=== PATIENT | female | born 1995 | race Caucasian/White ===

== ENCOUNTER 2016-05-06 15:07 | Emergency (ER) | payer OTHER ==
--- NOTE | 2016-05-06 15:24 | ER Document Report ---
ED Medical Screen (RME) - General Stated Complaint: DIFFICULTY BREATHING Notes: patient is a 20 year old female who is 32 weeks . c/o difficulty breathing and palpitations. denies chest pain, SOB,cough, fever, diarrhea, intermittently tachycardic to 120's for less then 30 seconds while talking I have greeted and performed a rapid initial assessment of this patient. A comprehensive ED assessment and evaluation of the patient, analysis of test results and completion of the medical decision making process will be conducted by additional ED providers. TRAVEL OUTSIDE OF THE [place] IN LAST 30 DAYS: No - Related Data Allergies/Adverse Reactions: No Known Allergies Allergy (Unverified 12/19/15 19:22) Past Medical History - Immunizations Hx Diphtheria, Pertussis, Tetanus Vaccination: Yes
--- NOTE | 2016-05-06 17:56 | ER Document Report ---
ED General - General Chief Complaint: Breathing Difficulty Stated Complaint: DIFFICULTY BREATHING Mode of Arrival: Ambulatory Information source: Patient Notes: Patient is a 20-year-old female who presents who is 32 weeks with a two -month history of intermittent heart palpitations, difficulty breathing and associated hot flashes. She describes no specific pattern to these episodes but states they are starting to happen more often. She saw her FITNESS FLOOR ATTENDANT 2 days ago who at that time did not feel these were related to the . She also endorses nosebleeds that have been occurring intermittently over the past 3 months. She states at one point she had a daily nosebleed for 2 weeks but it had seemed to be better until today. She did notice during her episode this morning her nose was also bleeding. She denies any headaches, dizziness, changes in vision, chest pain, nausea, vomiting or fevers/chills. She endorses adequate movement, no loss of fluid, no vaginal bleeding or vaginal discharge. She does have a history of anxiety but denies feeling anxious at this time. TRAVEL OUTSIDE OF THE [place] IN LAST 30 DAYS: No - Related Data Allergies/Adverse Reactions: No Known Allergies Allergy (Verified 05/06/16 15:21) Past Medical History - Social History Smoking Status: Never Smoker Chew tobacco use (# tins/day): No Frequency of alcohol use: None Drug Abuse: None Family History: Reviewed & Not Pertinent Patient has suicidal ideation: No Patient has homicidal ideation: No Renal/ Medical History: Denies: Hx Peritoneal Dialysis Surgical Hx: Negative - Immunizations Hx Diphtheria, Pertussis, Tetanus Vaccination: Yes Review of Systems - Review of Systems Constitutional: See HPI EENT: No symptoms reported Cardiovascular: See HPI Respiratory: No symptoms reported Gastrointestinal: No symptoms reported Genitourinary: No symptoms reported Female Genitourinary: No symptoms reported Musculoskeletal: No symptoms reported Skin: No symptoms reported Hematologic/Lymphatic: No symptoms reported Neurological/Psychological: No symptoms reported Physical Exam - Vital signs Vitals: Temp Pulse Resp BP Pulse Ox 97.8 F 86 20 113/77 96 05/06/16 15:21 05/06/16 15:21 05/06/16 15:21 05/06/16 15:21 05/06/16 15:21 - Notes Notes: PHYSICAL EXAM: CONSTITUTIONAL: Alert and oriented, well-appearing and in no acute distress. HENT: Normocephalic, atraumatic. Moist mucous membranes. EYES: Pupils equal round and reactive to light, EOM intact. Sclera anicteric, conjunctiva are normal. No entrapment. NECK: supple without lymphadenopathy. ROM intact. HEART: Regular rate and rhythm without murmurs. LUNGS: CTAB and equal. No wheezes, rales or rhonchi. GI: Gravid abdomen. Normactive bowel sounds. Nontender, non-distended. No organomegaly. no CVAT. BACK: nontender, no paraspinous spasm, 5+/5 strengths, DTRs 2+, SLR -. EXTREMITIES: Normal range of motion, no pitting edema. No cyanosis. Cap Refill < 3 seconds. NEURO: Cranial nerves grossly intact. Normal sensory/motor exams. PSYCH: Normal mood, normal affect. SKIN: Warm and dry. Normal turgor. No rashes or lesions noted. Course - Re-evaluation Re-evalutation: 05/06/16 17:55 I have consulted with the supervisory physician per [facility] guidelines. Patient seen and examined. Ordered lab work, urinalysis and EKG. During exam, heart rate noted to be 93. 05/06/16 20:50 Reviewed lab work - CBC unremarkable, chem panel unremarkable. Urinalysis with leuk est, 4 WBC. D-dimer within normal limits. Patient remained asymptomatic while in ED. Discussed management and plan with supervisory physician who is in agreement. Discharged home in stable condition, follow-up with OBGYN. Given script for abx for UTI. - Vital Signs Vital signs: Temp Pulse Resp BP Pulse Ox 97.8 F 86 20 113/77 96 05/06/16 15:21 05/06/16 15:21 05/06/16 15:21 05/06/16 15:21 05/06/16 15:21 - Laboratory Result Diagrams: 05/06/16 18:00 05/06/16 18:00 Laboratory results interpreted by me: 05/06/16 05/06/16 05/06/16 18:00 18:00 18:00 Hct 34.8 L Plt Count 101 L Sodium 134.9 L BUN 6 L Ur Leukocyte Esterase MODERATE H Discharge - Discharge Clinical Impression: UTI (urinary tract infection) Qualifiers: Urinary tract infection type: acute cystitis Hematuria presence: without hematuria Qualified Code(s): N30.00 - Acute cystitis without hematuria Condition: Stable Disposition: HOME, SELF-CARE Additional Instructions: URINARY TRACT INFECTION: Your evaluation indicates that you have a urinary tract infection. This is due to germs growing in the bladder. This is a common problem. This infection usually responds quickly to antibiotics. Your antibiotic should be taken exactly as prescribed. Drink plenty of fluids -- three to four quarts a day. Occasionally, a bladder anesthetic will be prescribed to help stop the feeling of urgency until the antibiotic has a chance to clear the infection. This may cause your urine to be dark orange. Certain urine infections require a culture. If the doctor obtained a culture, the results will be back in two days. You should call to see if a change in treatment is needed. A repeat urinalysis after you finish treatment is often recommended. The physician will let you know if further testing is required. Call the doctor if you develop fever, chills, flank pain, inability to urinate, or blood in the urine. ANTIBIOTIC THERAPY: You have been given an antibiotic prescription. It's important that you take all the medication, unless instructed otherwise by your physician. Failure to complete the entire course can result in relapse of your condition. Common side effects of antibiotics include nausea, intestinal cramping, or diarrhea. Women may develop vaginal yeast infections, and babies can get yeast (thrush) in the mouth following the use of antibiotics. Contact your physician if you develop significant side effects from this medication. Allergy to this antibiotic can result in hives, wheezing, faintness, or itching. If symptoms of allergy occur, stop the medication and call the doctor. NITROFURANTOIN (MACRODANTIN, MACROBID): You have received a prescription for nitrofurantoin (Macrodantin). This antibiotic is used for urinary tract infections. Women who are or nursing should notify the physician before taking this medicine. If you have ever had a problem caused by this medication in the past, be sure the physician is aware of it. Common side effects of this medicine include nausea, vomiting, or decreased appetite. Notify your physician if these side effects become severe. Immediately stop this medicine and call the physician if you develop cough , shortness of breath, chest pain, weakness, jaundice (yellow color of the skin and whites of the eyes), or a skin rash. FOLLOW-UP CARE: If you have been referred to a physician for follow-up care, call the physician s office for an appointment as you were instructed or within the next two days. If you experience worsening or a significant change in your symptoms, notify the physician immediately or return to the Emergency Department at any time for re-evaluation. Prescriptions: Nitrofurantoin/Nitrofuran Mac [Macrobid 100 mg Capsule] 1 tab PO BID #20 capsule
[2016-05-06 18:23] LABS: ABSOLUTE EOSINOPHILS # (AUTO) 0.1 10^3/uL (0.0-0.6); ABSOLUTE MONOCYTES (AUTO) 0.4 10^3/uL (0.1-1.4); BASOPHILS % (AUTO) 0.1 % (0-2); HEMATOCRIT 34.8 % (36.0-47.0); HEMOGLOBIN 12.2 g/dL (12.0-15.5); HGB HCT DIFFERENCE 1.8; LYMPHOCYTES % (AUTO) 26.6 % (13-45); MEAN CORPUSCULAR HEMOGLOBIN 30.1 pg (27.0-33.4); MEAN CORPUSCULAR HGB CONC 35.1 g/dL (32.0-36.0); MEAN CORPUSCULAR VOLUME 86 fl (80-97); MONOCYTES % (AUTO) 5.7 % (3-13); RED BLOOD COUNT 4.06 10^6/uL (3.72-5.28); SEGMENTED NEUTROPHILS % (AUTO) 66.6 % (42-78); WHITE BLOOD COUNT 7.6 10^3/uL (4.0-10.5)
[2016-05-06 18:44] LABS: ANION GAP 8 (5-19); BLOOD UREA NITROGEN 6 mg/dL (7-20); CARBON DIOXIDE 23 mmol/L (22-30); CHLORIDE 104 mmol/L (98-107); CREATININE RESULT 0.56 mg/dL (0.52-1.25); GLUCOSE 83 mg/dL (75-110); POTASSIUM 3.7 mmol/L (3.6-5.0); SODIUM 134.9 mmol/L (137-145)
[2016-05-06 18:52] LABS: APPEARANCE,URINE SLIGHTLY-CLOUDY; BILIRUBIN,URINE NEGATIVE (NEGATIVE); GLUCOSE, URINE NEGATIVE (NEGATIVE); KETONES,URINE NEGATIVE (NEGATIVE); LEUKOCYTE ESTERASE,URINE MODERATE (NEGATIVE); NITRITE,URINE NEGATIVE (NEGATIVE); PROTEIN,URINE NEGATIVE (NEGATIVE); URINE SPECIFIC GRAVITY 1.009; UROBILINOGEN,URINE NEGATIVE mg/dL (<2.0)
--- NOTE | 2016-05-06 19:11 | EKG REPORT ---
SEVERITY:- NORMAL ECG - SINUS RHYTHM : Confirmed by: Issa Valentino MD 06-May-2016 19:11:11
[2016-05-06 21:13] VITALS: BP 113/78
== END 2016-05-06 21:13 | disposition home or self-care (01) ==
LOC: ER 15:07
DX: O23.13 Infections of bladder in pregnancy, third trimester (principal); O26.893 Other specified pregnancy related conditions, third trimester; R00.2 Palpitations; R06.00 Dyspnea, unspecified; R04.0 Epistaxis; Z3A.32 32 weeks gestation of pregnancy
CPT/HCPCS: 36415; 80048; 81001; 85025; 85379; 93005; 93010; 99285

== ENCOUNTER 2018-02-02 05:27 | Day surgery (SDC) | payer OTHER ==
[2018-02-01 09:48] LABS: APPEARANCE,URINE SLIGHTLY-CLOUDY; BILIRUBIN,URINE NEGATIVE (NEGATIVE); COLOR,URINE AMBER; GLUCOSE, URINE NEGATIVE (NEGATIVE); KETONES,URINE NEGATIVE (NEGATIVE); LEUKOCYTE ESTERASE,URINE NEGATIVE (NEGATIVE); NITRITE,URINE NEGATIVE (NEGATIVE); PROTEIN,URINE NEGATIVE (NEGATIVE); URINE SPECIFIC GRAVITY 1.029
[2018-02-01 10:05] LABS: HEMATOCRIT 41.3 % (36.0-47.0); MEAN CORPUSCULAR HEMOGLOBIN 30.2 pg (27.0-33.4); MEAN CORPUSCULAR HGB CONC 36.3 g/dL (32.0-36.0); MEAN CORPUSCULAR VOLUME 83 fl (80-97); PLATELET COUNT 142 10^3/uL (150-450); RED BLOOD COUNT 4.96 10^6/uL (3.72-5.28); WHITE BLOOD COUNT 6.8 10^3/uL (4.0-10.5)
[2018-02-01 10:11] LABS: ANION GAP 13 (5-19); BLOOD UREA NITROGEN 11 mg/dL (7-20); CALCIUM 9.6 mg/dL (8.4-10.2); CARBON DIOXIDE 24 mmol/L (22-30); CHLORIDE 106 mmol/L (98-107); GLUCOSE 85 mg/dL (75-110); POTASSIUM 3.9 mmol/L (3.6-5.0); SODIUM 143.1 mmol/L (137-145)
[~2018-02-02 05:27] MED LIST: CEFAZOLIN 1 GM/D5W RTU 1 GM/50 ML RTUPB IV ONE; CEFAZOLIN 1 GM/D5W RTU 1 GM/50 ML RTUPB IV PRN; LACTATED RINGERS 1000 ML IV PRN; LIDOCAINE 0.5% INJ-PF (5 MG/ML) 50 ML SDV SUBCUT PRN
[2018-02-02] MEDS ORDERED: MIDAZOLAM 2 MG/2 ML INJ ONE (07:00)
[2018-02-02] MEDS ORDERED: FENTANYL CITRATE INJ/PF 100 MCG/2 ML AMPUL ONE (07:00)
[2018-02-02] MEDS ORDERED: PROPOFOL INJ 200 MG/20 ML VIAL IV ONE (07:00)
[2018-02-02] MEDS ORDERED: DIPHENHYDRAMINE HCL 50 MG/ML VIAL IV PRN (07:48)
[2018-02-02] MEDS ORDERED: PROMETHAZINE HCL INJ 25 MG/1 ML VIAL IV PRN (07:48)
[2018-02-02] MEDS ORDERED: FENTANYL CITRATE INJ/PF 100 MCG/2 ML AMPUL IV PRN ×3 (07:48)
[2018-02-02] MEDS ORDERED: MEPERIDINE HCL/PF INJ 25 MG/1 ML DISP.SYRIN IV PRN (07:48)
[2018-02-02] MEDS: FENTANYL CITRATE INJ/PF 100 MCG/2 ML AMPUL ONE ×2 (08:20→08:25)
[2018-02-02] MEDS ORDERED: MORPHINE INJ 4 MG DOSE (EDIT ROUTE) IM PRN (08:30)
[2018-02-02] MEDS ORDERED: PROMETHAZINE HCL INJ 25 MG/1 ML VIAL IM PRN (08:30)
[2018-02-02] MEDS ORDERED: OXYCODONE-ACETAMINOPHEN 5-325 MG TABLET PO PRN (08:30)
[2018-02-02] MEDS ORDERED: LORAZEPAM INJ 2 MG/1 ML VIAL ONE (08:34)
[2018-02-02] MEDS: HYDROMORPHONE HCL INJ/PF 2 MG/ML AMPULE ONE ×3 (08:45→08:58)
[2018-02-02] MEDS ORDERED: ACETAMINOPHEN 1,000 MG/100 ML RTUPB IV ONE (09:00)
[2018-02-02] MEDS ORDERED: KETOROLAC TROMETHAMINE INJ/PF 30 MG/1 ML SDV ONE (09:19)
[2018-02-02] MEDS: OXYCODONE-ACETAMINOPHEN 5-325 MG TABLET ONE ×2 (09:30→10:30)
[2018-02-02] MEDS ORDERED: IBUPROFEN 800 MG in NORMAL SALINE 250 ML IV ONE (10:30)
[2018-02-02] MEDS ORDERED: OXYCODONE-ACETAMINOPHEN 5-325 MG TABLET ONE (10:33)
[2018-02-02 11:58] VITALS: BP 115/70
[2018-02-02] MEDS ORDERED: IBUPROFEN 800 MG TABLET PO SCH (14:00)
[2018-02-02] MEDS ORDERED: DEXAMETHASONE SOD PHOSPHATE INJ 4 MG/1 ML VIAL ONE (14:08)
[2018-02-02] MEDS ORDERED: ONDANSETRON HCL INJ/PF 4 MG/2 ML SDV ONE (14:08)
[2018-02-02] MEDS ORDERED: SUCCINYLCHOLINE CHLORIDE INJ 200 MG/10 ML VIAL ONE (14:08)
[2018-02-02] MEDS ORDERED: LIDOCAINE 2% INJ-PF (20 MG/ML) 2 ML AMPUL ONE (14:08)
--- NOTE | 2018-02-02 18:16 | OPERATIVE REPORT E ---
Operative Report NAME: CHERRY VOGT : 1995 AGE: 22Y DATE OF SURGERY: 02/02/2018 ROOM: PREOPERATIVE DIAGNOSIS: DESIRES PERMANENT STERILIZATION. POSTOPERATIVE DIAGNOSIS: DESIRES PERMANENT STERILIZATION. OPERATION: Open laparoscopic Filshie clip sterilization. SURGEON: ELMER THORNTON M.D. COMPLICATION: None. ANESTHESIA: General tracheal. FINDINGS: That of a normal upper abdomen and gallbladder, normal tubes and ovaries, normal uterus and normal cul-de-sac, and no endometriosis appreciated. INDICATION FOR PROCEDURE: The patient desired permanent sterilization attempt. The usual risks of bleeding, infection, anesthesia, and damage to other organs and tissues were discussed, the patient understood. DETAILS OF PROCEDURE: The patient taken to the operating room, placed in the modified lithotomy position after adequate anesthesia ascertained, prepped and draped in the usual manner for a laparoscopy. Surgery timeout performed, EUA performed. The bladder was drained using sterile technique. A Hulka tenaculum placed on the anterior lip of the cervix, the cervix was topped, and the antibiotics had been given. Attention was turned to the umbilicus whereupon a transverse incision was made in extending through fat, and fascia. The peritoneum was entered bluntly. An open port was placed and gas instilled under direct visualization. Under direct visualization an 8 mm port was placed approximately 3 fingerbreadths above the symphysis pubis, well away from the bladder and using this for the Filshie applicator the above noted findings were appreciated. Tubes were identified in their entirety. The clip was noted to be placed on the antimesenteric border of the tube, approximately a centimeter from the uterine fundus bilaterally with adequate tube noted to extend the width of the tube and the adequate tube noted to be within the hinge of the clip. This was all done hemostatically. The instilled gas was removed. Incisions were examined. The umbilicus was closed with a 2-0 Vicryl fascial stitch and 3-0 Chromic catgut subcutaneously, as well as we did the 8 mm port down below. Instruments removed. The patient awakened and taken to the recovery room in stable condition. DICTATING PHYSICIAN: ELMER THORNTON M.D. [id number] Y#: [id number] ID: [id number] JOB#: [id number] ACCT: [id number] cc:ELMER THORNTON M.D. >
== END 2018-02-02 11:30 | disposition home or self-care (01) ==
LOC: OROUT 05:27
PROVIDERS: ATTEND Specialist
DX: Z30.2 Encounter for sterilization (principal); Z79.899 Other long term (current) drug therapy
CPT/HCPCS: 86900; 86901; 36415; 86850; 85027; 81025; 80048; 81001; 58671; J2250; J0690; J1100; J3010; J1885; J1170; J2060; J0330; J2405; J2704; J0131; J3490; 851